=== PATIENT | male | born 1980 | race Caucasian/White ===

== ENCOUNTER 2017-01-13 16:38 | Emergency (ER) | payer MEDICAID ==
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
[2017-01-13] MEDS ORDERED: Doxycycline 100 MG Cap PO ONE (19:44)
[2017-01-13 20:59] VITALS: BP 139/80
== END 2017-01-13 20:00 | disposition home or self-care (01) ==
LOC: JD.ED 16:38
DX: T81.4XXA Infection following a procedure, initial encounter (principal); D64.9 Anemia, unspecified; F32.9 Major depressive disorder, single episode, unspecified; E66.9 Obesity, unspecified; Z87.820 Personal history of traumatic brain injury; F17.210 Nicotine dependence, cigarettes, uncomplicated; Z68.30 Body mass index [BMI] 30.0-30.9, adult; Z79.899 Other long term (current) drug therapy; Z91.048 Other nonmedicinal substance allergy status; Y82.8 Other medical devices associated with adverse incidents
CPT/HCPCS: 36415; 80053; 85025; 86140; 99283; A9270